=== PATIENT | male | born 1940 | race African-American/Black ===

== ENCOUNTER 2016-03-25 16:25 | Inpatient (IN) | payer MEDICARE, OTHER ==
[~2016-03-25] VITALS: Ht 182.9 cm; Wt 90.1 kg
[2016-03-25] VITALS (21 sets, daily range): BP systolic 68–104; BP diastolic 49–74
--- NOTE | ~2016-03-25 | HEMODYNAMI ---
PATIENT:BERTIN BURLESON MEDICAL RECORD: [id number] : 44 LOCATION:[facility] [id number] ADMISSION DATE: 03/25/16 Generatedon:03/27/201612:42 Patient name: BERTIN BURLESON Patient #: [id number] SSN: : 1940 Date of study: 03/27/2016 Page: Of Hemodynamic Procedure Report Patient Data Patient Demographics Procedure consent was obtained First Name: BERTIN Gender: Male Last Name: SARAH BETH : 1940 Patient #: [id number] Age: 75 year(s) Race: Black Additional ID: [id number] Contact details [address]: [address] [place] [address] State: [place] City: [place] Zip code: [address] Past Medical History Allergies Allergen Reaction Date Comments Reported Sulfa drugs 03/27/2016 Admission Admission Data Admission Date: 03/25/2016 Admission Time: 18:13 Room #: 2308 Height (in.): 72 BSA: 2.1 (m2) Height (cm.): 182.88 BMI: 26.18 (kg/m2) Weight (lbs.): 193 Weight (kg.): 87.54 Procedure Procedure Types Cath Procedure Peripheral Cath Diagnostic Procedure Cath Peripheral Abd/Extremity Extremities Right Lower Ext Arterio Procedure Description Procedure Date Procedure Date: 03/27/2016 Procedure Start Time: 11:05 Procedure Staff Name Function Hola Carbajal MD Performing Physician Karlos Freed RT Scrub Tiny Scherer RN Nurse Aida Fabian RT Monitor Procedure Data Cath Procedure Fluoroscopy Diagnostic fluoroscopy Total fluoroscopy Time: 21 time: 21 min min Diagnostic fluoroscopy Total fluoroscopy dose: dose: 277.74 mGy 277.74 mGy Contrast Material Contrast Material Type Amount (ml) Isovue 300 75 Entry Location Entry Primary Successful Side Size Upsize Upsize Entry Closure Succes sful Closure Location (Fr) 1 (Fr) 2 (Fr) Remarks Device Remarks Femoral Left 5 Fr artery Femoral Right Exoseal artery Diagnostic catheters Device Type Used For End Catheter Placement Madison Sci 5Fr IMT Catheter Procedure Medications Medication Administration Route Dosage Oxygen NC 3 l/min Lidocaine 1% added to field 20 Heparin Flush Bag added to field 3 bags (1000units/500ml NS) Benadryl I.V. 50 mg Versed I.V. 0.5 mg Fentanyl I.V. 25 mcg Heparin Bolus I.V. 4000 units Versed I.V. 0.5 mg Fentanyl I.V. 25 mcg Nitroglycerin IC/IA I.C. 250 mcg Fentanyl I.V. 25 mcg Versed I.V. 0.5 mg Hemodynamics Rest BSA: 2.1 (m2) O2 Consumption: Estimated: 257.1 (ml/min) O2 Consumption indexed: Estimated:122.43 (ml/min/m) Heart Rate: 89 (bpm) Snapshots Pre Cath Intra NCS Post Cath Vital Signs Time Heart Resp SPO2 NIBP (mmHg) Rhythm Pain Sedation Rate (ipm) (%) Status Level (bpm) 10:45:34 79 17 95 93/59(76) NSR 0 (11) 10(A) , No pain 10:49:35 83 18 97 100/69(85) NSR 0 (11) 10(A) , No pain 10:53:41 82 19 96 96/59(77) NSR 0 (11) 10(A) , No pain 10:57:45 76 18 97 96/61(78) NSR 0 (11) 10(A) , No pain 11:01:49 83 17 94 93/63(76) NSR 0 (11) 10(A) , No pain 11:05:51 98 19 96 103/64(85) NSR 0 (11) 10(A) , No pain 11:09:56 81 20 95 102/66(82) NSR 0 (11) 9(A) , No pain 11:14:02 87 19 94 90/61(80) NSR 0 (11) 9(A) , No pain 11:18:04 87 17 96 94/59(78) NSR 0 (11) 9(A) , No pain 11:22:05 83 17 95 96/68(81) NSR 0 (11) 9(A) , No pain 11:26:09 88 17 94 95/62(78) NSR 0 (11) 9(A) , No pain 11:30:13 79 16 97 94/60(80) NSR 0 (11) 9(A) , No pain 11:34:15 83 18 94 102/63(78) NSR 0 (11) 9(A) , No pain 11:38:20 82 17 93 96/60(87) NSR 0 (11) 9(A) , No pain 11:42:24 80 18 95 92/62(74) NSR 0 (11) 9(A) , No pain 11:46:26 84 16 97 89/64(78) NSR 0 (11) 9(A) , No pain 11:50:25 87 17 99 93/66(79) NSR 0 (11) 9(A) , No pain 11:54:29 81 18 97 92/61(78) NSR 0 (11) 9(A) , No pain 11:58:31 80 18 99 92/63(77) NSR 0 (11) 9(A) , No pain 12:02:33 75 16 98 95/65(80) NSR 0 (11) 9(A) , No pain 12:06:36 87 19 100 101/64(85) NSR 0 (11) 9(A) , No pain 12:10:38 94 20 100 108/74(92) NSR 0 (11) 9(A) , No pain 12:14:42 89 20 99 105/72(89) NSR 0 (11) 9(A) , No pain 12:19:39 83 19 100 110/73(88) NSR 0 (11) 9(A) , No pain 12:23:44 89 17 100 107/70(92) NSR 0 (11) 9(A) , No pain 12:27:50 94 17 100 109/70(95) NSR 0 (11) 9(A) , No pain 12:31:56 85 19 100 104/72(99) NSR 0 (11) 9(A) , No pain 12:35:58 89 14 112/76(101) NSR 0 (11) 9(A) , No pain 12:40:04 82 13 107/79(96) NSR 0 (11) 9(A) , No pain Medications Time Medication Route Dose Verified Delivered Reason Notes E ffectiveness by by 10:50:13 Oxygen NC 3 Tiny Tiny used for l/min Niesha Niesha checker loader RN 10:50:22 Lidocaine 1% added 20ml Tiny Tiny used for to vial Niesha Niesha procedure field RN RN 10:50:33 Heparin Flush added 3 Tiny Tiny used for Bag to bags Niesha Niesha procedure (1000units/500ml field RN RN NS) 11:00:41 Benadryl I.V. 50 mg Tiny Tiny Per Niesha Niesha physician RN RN 11:04:49 Versed I.V. 0.5 Tiny Tiny for sedation mg Niesha Niesha RN RN 11:04:57 Fentanyl I.V. 25 Tiny Tiny for sedation mcg Niesha Niesha RN RN 11:19:18 Heparin Bolus I.V. 4000 Tiny Tiny Per units Niesha Niesha physician RN RN 11:31:22 Versed I.V. 0.5 Tiny Tiny for sedation mg Niesha Niesha RN RN 11:31:26 Fentanyl I.V. 25 Tiny Tiny for sedation mcg Niesha Niesha RN RN 11:39:46 Nitroglycerin I.C. 250 Hola Hola for IC/IA mcg Solomon greer MD, MD 12:08:51 Fentanyl I.V. 25 Tiny Tiny for sedation mcg Niesha Niesha RN RN 12:08:57 Versed I.V. 0.5 Tiny Tiny for sedation mg Niesha Niesha RN carbon blocks press operator Log Time Note 9:51:59 Patient Weight : 193 lbs 9:52:11 Patient Height : 72 inches 9:52:17 Use device set IR Diagnostic 9:52:19 Sterile Angiographic Pack opened to sterile field. 9:52:20 Bag Decanter opened to sterile field. 9:53:12 Yasmani GO 260 guide wire opened to sterile field. 9:53:13 Yasmani PINEDA 145cm guide wire opened to sterile field. 9:53:15 St Jose Francisco 5FR Sheath opened to sterile field. 9:53:16 Micropuncture VSI 4FR kit opened to sterile field. 9:54:04 - 10:35:13 A DooBop 5Fr IMT Catheter was advanced over the wire and used for . 10:42:54 Time tracking: Regular hours 10:43:14 Plan of Care:Hemodynamics will remain stable., Cardiac rhythm will remain stable., Comfort level will be maintained., Respiratory function will remain adequate., Patient/ family verbilizes understanding of procedure., Procedure tolerated without complication., Recovers from procedure without complications.. 10:43:21 Patient received from ICU to IR Alert and oriented. Tansferred to table in Supine position. 10:43:23 Correct patient and procedure confirmed by team. 10:43:26 Signed procedure consent form obtained from patient. 10:43:28 - 10:43:34 H&P Date Dictated: 03/27/2016 Within 30 days and on chart.. 10:43:36 Pre-procedure instructions explained to patient. 10:43:36 Pre-op teaching completed and patient verbalized understanding. 10:43:39 Family unavailable. 10:43:46 Patient NPO since Midnight. 10:44:01 Patient allergic to Sulfa drugs 10:44:06 Is the patient allergic to Iodine/contrast media? No. 10:44:14 Is patient on blood thinner?No 10:44:19 Patient diabetic? No. 10:44:27 ECG and BP/O2 sat monitors applied to patient. 10:44:29 Vital chart was started 10:44:30 Baseline sample Acquired. 10:44:52 Full Disclosure recording started 10:47:19 Rhythm: paced 10:47:26 - 10:47:38 ----Pre-sedation anethsthesia assessment.---- 10:47:48 Previous problem with sedation/anesthesia? No ? 10:47:51 Snore? Yes 10:47:54 Sleep apnea? No 10:47:56 Deviated septum? No 10:47:58 Opens mouth fully? Yes 10:48:01 Sticks out tongue? Yes 10:48:06 Airway obstruction? Yes cad 10:48:10 Dentures? No ? 10:48:12 - 10:48:21 Pre procedure: right dorsailis pedis pulse 0-Absent 10:48:25 Pre procedure: left dorsailis pedis pulse Doppler 10:48:30 Pre procedure: left posterior tibial pulse Doppler 10:48:36 Pre procedure: right posterior tibial pulse 0-Absent 10:48:48 IV patent on arrival in right hand with 0.9% NaCl at [facility]. 10:49:02 Left groin area was prepped with chlora-prep and draped in sterile fashion 10:49:06 Alarms reviewed by Aly Cano 10:49:07 Sharps counted by scrub and verified by Karissa 10:49:07 - 10:50:13 Oxygen 3 l/min NC was given by Tiny Scherer RN; used for procedure; 10:50:22 Lidocaine 1% 20ml vial added to field was given by Tiny Scherer RN; used for procedure; 10:50:33 Heparin Flush Bag (1000units/500ml NS) 3 bags added to field was given by Tiny Scherer RN; used for procedure; 11:00:41 Benadryl 50 mg I.V. was given by Tiny Scherer RN; Per physician; 11:02:20 CXI SUPPORT .035 135 CM STR catheter opened to sterile field. 11:02:34 Physician arrived 11:02:48 --------ALL STOP TIME OUT------ 11:02:49 Final Timeout: patient, procedure, and site verified with staff and physician. All members of the team are in agreement. 11:03:19 Sedation plan: IV Moderate Sedation Versed, Fentanyl 11:04:49 Versed 0.5 mg I.V. was given by Tiny Scherer RN; for sedation; 11:04:57 Fentanyl 25 mcg I.V. was given by Tiny Scherer RN; for sedation; 11:05:15 Local anesthetic to left femerol artery with Lidocaine 1% by Hola Carbajal MD.INITIAL ACCESS ONLY 11:05:19 Arterial access obtained using ultrasound guidance. 11:06:13 A 5 Fr sheath was inserted into the Left Femoral artery 11:10:38 [address] ROADRUNNER FIRM 260CM glide wire opened to sterile field. 11:13:32 Terumo 6Fr Bernard Destination Sheath opened to sterile field. 11:17:42 Angiography was performed. 11:19:18 Heparin Bolus 4000 units I.V. was given by Tiny Scherer RN; Per physician; 11:28:02 Terumo ANGLE 260cm glide wire opened to sterile field. 11:31:22 Versed 0.5 mg I.V. was given by Tiny Scherer RN; for sedation; 11:31:26 Fentanyl 25 mcg I.V. was given by Tiny Scherer RN; for sedation; 11:34:14 VIPER .014 335 CM guide wire opened to sterile field. 11:39:25 Turbohawk 1 Large Atherectomy catheter opened to sterile field. 11:39:46 Nitroglycerin IC/IA 250 mcg I.C. was given by Hola Carbajal MD; for vasodilation; 11:51:21 BasixTOUCH Inflation Syringe opened to sterile field. 11:52:35 Inflation number: 1 A Saber 4.0 x 4 x 150 balloon was prepped and advanced across the Undefined1, then inflated to 15 JOSEFINA for 0:20 (min:sec). 12:05:14 Inflation number: 1 A Cordis Powerflex Pro 5.0 X 100 X 135 balloon was prepped and advanced across the Undefined2, then inflated to 15 JOSEFINA for 0:26 (min:sec). 12:08:51 Fentanyl 25 mcg I.V. was given by Tiny Scherer RN; for sedation; 12:08:57 Versed 0.5 mg I.V. was given by Tiny Scherer RN; for sedation; 12:14:36 Inflation number: 2 A IN.PACT Admiral 6 x 150 balloon was prepped and advanced across the Undefined1, then inflated to 12 JOSEFINA for 0:16 (min:sec). 12:16:34 Inflation number: 3 The IN.PACT Admiral 6 x 150 balloon was reinflated across the Undefined1, to 14 JOSEFINA for 0:00 (min:sec). 12:28:35 St Jose Francisco 6Fr sheath opened to sterile field. 12:33:10 Cordis 6Fr Exoseal opened to sterile field. 12:33:56 A sheath was inserted into the Right Femoral artery 12:33:56 Sheath removed intact; hemostasis achieved with Exoseal to the Right Femoral artery. 12:34:00 Procedure and supply charges have been captured, reviewed, submitted an d are correct. 12:34:10 Procedure ended.(Physican Out) 12:34:44 Fluoroscopy time 21.00 minutes. 12:34:51 Fluoroscopy dose: 277.74 mGy 12:34:51 Flurop Dose total: 277.74 12:35:05 Contrast amount:Isovue 300 75ml. 12:35:08 Sharps counted by scrub and verified by R.N. 12:41:48 End room use (Document Last) 12:42:23 Vital chart was stopped Intervention Summary Intervention Notes Time ActionType Lesion and Equipment Action# Pressure Duration Attributes Used 11:52:35 Inflate Undefined1 Saber 4.0 1 15 00:20 balloon x 4 x 150 balloon 12:05:14 Inflate Undefined2 Cordis 1 15 00:26 balloon Powerflex Pro 5.0 X 100 X 135 balloon 12:14:36 Inflate Undefined1 IN.PACT 2 12 00:16 balloon Admiral 6 x 150 balloon 12:16:34 Reinflate Undefined1 IN.PACT 3 14 00:00 balloon Admiral 6 x 150 balloon Device Usage Item Name Manufacture Quantity Catalog Number Hospital Part Current Minimal Lot# / Charge Number Stock Stock Serial# Code Sterile Cardinal 1 [id number] 5 Angiographic Health Pack Bag Decanter Microtek 1 [id number] 91865 498437 5 [employer] [facility] 1 [id number] 345995 402574 5 [id number] 260 guide wire [place] [employer] 1 [id number] 176387 715463 [address] [id number] guide wire [address] [facility] 5FR [facility] Jose Francisco 1 [id number] 380162 713768 5 [id number] Sheath Micropuncture VSI VASCULAR 1 [id number] 072976 393763 5 VSI 4FR kit SOLUTIONS Madison Sci Madison 1 [id number] 909679 828898 86681 5 5Fr IMT Scientific Catheter CXI SUPPORT [employer] 1 K76042 499757 950723 5 1867934 .035 135 CM STR catheter [facility] 1 [id number] 823673 191186 5 [id number] ROADRUNNER FIRM 260CM glide wire Terumo 6Fr Terumo 1 RSR01 401879 23404 960801 5 Bernard Destination Sheath Terumo ANGLE Terumo 1 [id number] 795327 508312 415043 5 260cm glide wire VIPER .014 Cardiovascular 1 [id number] 214288 226904 5 335 CM guide systems wire Turbohawk 1 Ev3 1 H1-M 075617 346291 146769 5 Large Atherectomy catheter [facility] 1 MN8000 549031 839693 013987 5 Inflation Syringe Saber 4.0 x 4 Cardinal 1 [id number] 272031 016647 5 x 150 balloon Health Cordis Cardinal 1 [id number] 176489 292037 629161 5 Powerflex Pro Health 5.0 X 100 X 135 balloon IN.PACT Medtronic 1 [id number] 187605 0441090 059383 5 [id number] Admiral [address] Jose Francisco [address] St Jose Francisco 1 [id number] 597987 916404 5 [id number] sheath Cordis 6Fr Cardinal 1 EX600 526394 965485 150130 10 [id number] [facility] L'[employer]ine Ã Design Signature Audit [place] Stage Time Signature Unsigned Intra-Procedure 03/27/2016 Aida Fabian 12:42:19 PM RT(R) Signatures Monitor : Aida Fabian RT Signature : Date : Time : [id number] [place] [address]
[~2016-03-25 16:25] MED LIST: COREG25 MG PO; COUMADIN10 MG PO; COUMADIN5 MG PO; COZAAR100 MG PO; FLOMAX0.4 MG PO; GLUCOTROL 5 MG T5 MG PO; LANTUS INSULIN10 ML SC; LASIX40 MG PO; LIPITOR10 MG PO; NORCO 7.5/325 T1 TA1 PO; PHOSLO667 MG PO; PLAVIX75 MG PO; PROAIR HFA8.5 GM INH; ZYLOPRIM100 MG PO
--- NOTE | 2016-03-25 18:34 | NUR ---
DR. GANN NOTIFIED OF PT ARRIVAL. STATES HE WILL "COME SEE HIM". DIET ORDERED.
--- NOTE | 2016-03-25 18:39 | NUR ---
1830 RECEIVED PT FROM EMS FROM [place], AWAKE ALERT ORIENTED X 4 BP LOW ON LEVOPHED GTT TRANSFERRED TO ICU BED AND HOOKED UP TO MONOITORS. ABLE TO ANSWER ALL QUESTIONS. C/O NAUSEA BARF BAG GIVEN. ON RROM AIR O2 SATS 94%. DR GANN PAGED AND ORDERS GIVEN.
[2016-03-25] MEDS ORDERED: LASIX80 MG PO (19:19)
[2016-03-25] MEDS ORDERED: NORCO 7.5/325 T1 TA1 PO (19:21)
[2016-03-25] MEDS ORDERED: NEPHRO-VITE RX1 TAB PO (19:24)
[2016-03-25] MEDS ORDERED: LINEZOLID600 MG PO (19:24)
--- NOTE | 2016-03-25 19:30 | NUR ---
REPORT REC'D AND CARE ASSUMED, REC'D PT AWAKE AND ALERT ON ROOM AIR, RIGHT FOREARM PIV WITH LEVOPHED @ 12MCG/MIN, CM- SR WITH PAC'S AND PVC'S, PT HAS P/M DEFIBRILLATOR, DENIES PAIN AT THIS TIME, WHEN ASKED IF NAUSEATED STATES " A LITTLE", ABD SOFT BS ACTIVE X 4, LEFT UPPER ARM FISTULA, FAINT THRILL NOTED, BP 68/49, LEVOPHED INCREASED TO 14MCG/MIN, RIGHT FOOT DRSG WITH SANGUINOUS DRAINAGE, PT REPORTS AMPUTATION 11 MONTHS AGO, KERLIX LOOSE ON FOOT, PT DENIES NEEDS, SR UP X 2, VISIBLE TO NURSES STATION.
--- NOTE | 2016-03-25 20:15 | NUR ---
DR. GANN ON UNIT, NEW ORDERS REC'D.
--- NOTE | 2016-03-25 20:30 | NUR ---
DR. GANN ON UNIT, NEW ORDERS REC'D.
--- NOTE | 2016-03-25 20:30 | NUR ---
BP IMPROVED WILL CONT TO MONITOR, PT COMPLAINS OF BEING COLD, THERMOSTAT ADJUSTED IN ROOM.
--- NOTE | 2016-03-25 20:40 | NUR ---
NS @ 30CC/HR BEGUN TO RIGHT FOREARM, PT RESTING ON RIGHT SIDE, SR UP X 2, VISIBLE TO NURSES STATION
--- NOTE | 2016-03-25 23:00 | NUR ---
PT RESTING IN BED EYES CLOSED, BP IMPROVED, ATTEMPTING TO WEAN LEVOPHED TOLERATED, PT DENIES FURTHER NEEDS, SR UP X 2, BED IN LOWEST POSITION.
[2016-03-26] VITALS (95 sets, daily range): BP systolic 71–101; BP diastolic 46–82; Ht 182.9 cm; Wt 90.1 kg
--- NOTE | 2016-03-26 00:30 | NUR ---
PT NEEDING TO GO TO BATHROOM COMPLAINS OF ABD CRAMPING, PLACED ON BEDPAN, CALL LIGHT IN REACH.
--- NOTE | 2016-03-26 00:55 | NUR ---
PT REMOVED SELF FROM BEDPAN, NO RESULTS NOTED, BP 85/64, LEVOPHED CONTINUES, CALL LIGHT IN REACH.
--- NOTE | 2016-03-26 02:30 | NUR ---
RESTING ON SIDE EYES CLOSED, RESP EVEN AND UNLABORED, VSS, WILL CONT TO MONITOR FOR CHANGES
--- NOTE | 2016-03-26 04:15 | NUR ---
PT ASSISTED TO REPOSITION UP IN BED, VSS, ATTEMPTING TO WEAN LEVOPHED TOLERATED.
--- NOTE | 2016-03-26 04:50 | NUR ---
LAB AT FOR AM LAB DRAW
--- NOTE | 2016-03-26 06:00 | NUR ---
NO VISITORS IN AT THIS TIME.
[2016-03-26 06:19] LABS: BASOPHILS 0 % (0.0-2.0); EOSINOPHILS 0.4 % (0-7); HEMATOCRIT 38.2 % (42.0-54.0); HEMOGLOBIN 12.9 g/dL (13.5-17.5); IMMATURE GRANULOCYTES 0.3 % (0-5); MCH 29.7 pg (26.0-34.0); MCHC 33.8 g/dL (31.0-37.0); MEAN PLATELET VOLUME 11.4 fL (7.4-10.4); MONOCYTES 5.8 % (2-11); NEUTROPHILS 86.5 % (40-80); RBC 4.34 10x6/uL (4.20-6.10); RDW 20.1 % (11.5-14.5); WBC 9.3 10x3/uL (4.8-10.8)
[2016-03-26 06:33] LABS: INR 1.73 (0.85-1.17); PROTIME 20.2 SECONDS (11.6-15.0)
[2016-03-26 06:35] LABS: ALBUMIN 2.6 g/dL (3.4-5.0); ANION GAP 22.3 mmol/L (8-16); BILIRUBIN - DIRECT 0.31 mg/dL (0.00-0.30); BILIRUBIN - INDIRECT 0.49 mg/dL (0.00-1.00); BILIRUBIN - TOTAL 0.8 mg/dL (0.2-1.3); CALCIUM 7.3 mg/dL (8.5-10.1); CARBON DIOXIDE 23.6 mmol/L (21.0-32.0); CREATININE - SERUM 9.8 mg/dL (0.6-1.3); PHOSPHOROUS 7.9 mg/dL (2.5-4.9); POTASSIUM - SERUM 4.9 mmol/L (3.5-5.1); PROTEIN - SERUM 5.7 g/dL (6.4-8.2); VANCOMYCIN - RANDOM 11.4 ug/mL (10.0-20.0)
[2016-03-26 07:23] LABS: PLATELET COUNT 67 10x3/uL (130-400)
[2016-03-26 07:24] LABS: PLATELET ESTIMATE DECREASED
--- NOTE | 2016-03-26 07:30 | NUR ---
0730- REC'D PT AAO X4. PT RIGHT LEG DRSG REMOVED. WOUND CARE NURSE CONSULT IN COMPUTER. PT C/O INDIGESTION. BURPS FREQUENTLY. LEVOPHED BEING TITRATED FOR DESIRED B/P EFFECT. 0850- DR GANN AT BEDSIDE. NEW ORDERS REC'D. WILL TITRATE LEVOPHED OFF AND START DOBUTAMINE GTT. 1000- PT GONE FOR CTA. 1150- PT RESTING IN BED, EYES CLOSED. CONTINUE TO TITRATE LEVOPHED GTT OFF AND INFUSE DOBUTAMINE TO DESIRED LEVEL.
--- NOTE | 2016-03-26 12:22 | NUR ---
WOUND CARE CONSULT: PT HAS WOUND ON RIGHT FOOT WHERE GREAT TOE #2 AND #3 TOES WERE AMPUTATED. THE BONE IS VISABLE AT GREAT TOE AND #2 AND #3 SITE IS CLOSING. PT FAMILY MEMBER STATES AMPUTATION WAS DONE ABOUT 11 MONTHS AGO. HE ALSO HAS A WOUND ON HIS RIGHT CALF MEASURING 5CM X 6CM X ESCHAR. WOUND IS DRY. HE IS BEING SEEN AT WOUND CLINIC IN [place] ONCE/WEEK. FAMILY MEMBER STATES THEY HAVE BEEN USING SANTYL ON THE LEG WOUND (CHANGING DAILY) AND UNSURE ABOUT DRESSING TO AMPUTATION SITE OTHER THAN IT WAS PACKED (APPEARED TO BE 1/4" PACKING STRIP). CLEANSED AND COVERED WOUND TO AMP SITE WITH 4X4 SATURATED WITH NORMAL SALINE, LOOSELY PACKED AND COVERED WITH DRY 4X4S, SECURED WITH KERLIX. DR. YOU HAS BEEN CONSULTED. WOUND CARE WILL CONTINUE TO MONITOR.
--- NOTE | 2016-03-26 13:45 | NUR ---
1345- PT RESTING IN BED, DENIES NEEDS AT THIS TIME. 1545- REASSESSMENT COMPLETE. NO CHANGE IN PREVIOUS ASSESSMENT. 1700- PT NAUSEATED. ZOFRAN GIVEN [address] MG IV. SPOKE WITH DR SHEARER REGARDING PT NAUSEA. ORDERS REC'D.
[2016-03-26 16:27] LABS: HEMATOCRIT 40.4 % (42.0-54.0); HEMOGLOBIN 13.3 g/dL (13.5-17.5); MCHC 32.9 g/dL (31.0-37.0); MCV 88.2 fL (80.0-100.0); MEAN PLATELET VOLUME 11.5 fL (7.4-10.4); RBC 4.58 10x6/uL (4.20-6.10); RDW 20.7 % (11.5-14.5); WBC 9.4 10x3/uL (4.8-10.8)
[2016-03-26 16:38] LABS: APTT 34.7 SECONDS (22.8-39.4); INR 1.72 (0.85-1.17); PROTIME 20.1 SECONDS (11.6-15.0)
--- NOTE | 2016-03-26 19:24 | NUR ---
REPORT RECIEVED. ASSESSMENT COMPELTE PER FLOW SHEET. REFER FOR FINDINGS. PT ASSISTEDO NTO BEDPAN DENIES FURTHER NEEDS.
--- NOTE | 2016-03-26 20:11 | NUR ---
PARTIAL LINEN CHANGE LARGE BM NOTED. NEEDS MET. WILL CONTINUE TO MONITOR.
--- NOTE | 2016-03-26 21:21 | NUR ---
FAMILY AT BEDSIDE. GIVEN UPDATE. VSS NO NEW CHANGES WILL CONTNIUE T MONITOR.
--- NOTE | 2016-03-26 23:06 | NUR ---
REASSESSMENT COMPLETE PER FLOW SHEET. VSS NO NEW CHANGES. PT SLEEPING COMFORTABLY. WILL CONTINUE TO MONITOR.
[2016-03-27] VITALS (57 sets, daily range): BP systolic 81–108; BP diastolic 49–74
--- NOTE | 2016-03-27 03:08 | NUR ---
REASSESSMENT COMPELTE PER FLOW SHEET. VSS. NO NEW CHANGES WILL CONTINUE TO MONITOR.
[2016-03-27 04:51] LABS: BASOPHILS 0 % (0.0-2.0); EOSINOPHILS 0.6 % (0-7); HEMOGLOBIN 12.7 g/dL (13.5-17.5); IMMATURE GRANULOCYTES 0.4 % (0-5); MCH 29.1 pg (26.0-34.0); MCHC 33.4 g/dL (31.0-37.0); MCV 87.2 fL (80.0-100.0); MEAN PLATELET VOLUME 11.5 fL (7.4-10.4); MONOCYTES 6.5 % (2-11); NEUTROPHILS 86.5 % (40-80); PLATELET COUNT 59 10x3/uL (130-400); RBC 4.36 10x6/uL (4.20-6.10); RDW 20.5 % (11.5-14.5); WBC 8.1 10x3/uL (4.8-10.8)
[2016-03-27 05:05] LABS: ANION GAP 19.7 mmol/L (8-16); CALCIUM 7.1 mg/dL (8.5-10.1); CARBON DIOXIDE 22.2 mmol/L (21.0-32.0); CREATININE - SERUM 10.3 mg/dL (0.6-1.3); PHOSPHOROUS 8.8 mg/dL (2.5-4.9); POTASSIUM - SERUM 4.9 mmol/L (3.5-5.1)
--- NOTE | 2016-03-27 07:00 | NUR ---
REPORT REC'D, ASSESSMENT COMPLETE PER FLOWSHEET, VSS, AWAKE AND ORIENTED
[2016-03-27 08:01] LABS: INR 1.61 (0.85-1.17); PROTIME 19.1 SECONDS (11.6-15.0)
--- NOTE | 2016-03-27 08:45 | NUR ---
AM MEDS INTIATED
--- NOTE | 2016-03-27 10:30 | NUR ---
TO IR FOR ARTERIOGRAM, AWAKE AND OREINTED, VSS
--- NOTE | 2016-03-27 13:16 | NUR ---
Is the patient Alert and Oriented? No 0 * How many steps to enter\exit or inside your home? 6 0 * PCP DR. EUGENE CHU IN [place] * [facility]acy [facility] IN [place] * Preadmission Environment Home with Family 0 * ADLs Total Dependent 0 * Equipment Cane Walker 0 * List name and contact numbers for known caregivers / representatives who currently or will assist patient after discharge: SPOUSE: IVETH (C) [phone] (H) [phone] 0 * Community resources currently utilized None 0 * Please name any agencies selected above. PREVIOUSLY HAD HOME HEALTH FROM AGENCY IN [place] * Additional services required to return to the preadmission environment? Yes 0 * Can the patient safely return to the preadmission environment? No 0 * Has this patient been hospitalized within the prior 30 days at any hospital? No 0 SPOKE WITH PATIENT'S , IVETH. HE LIVES AT HOME WITH HER. HE IS PRETTY DEPENDENT IN HIS CARE. PATIENT'S PCP IS DR. EUGENE CHU IN [place]. HE GETS HIS MEDS FROM [facility] IN [place]. PATIENT HAS A WALKER AND CANE AT HOME. STATES PATIENT HAD HOME HEALTH IN THE PAST FROM AN AGENCY IN [place]. SHE DOES NOT RECALL THE NAME OF THE AGENCY. PATIENT DOES DIALYSIS AT DIALYSIS UNIT IN [place] ON . HIS , IVETH, DRIVES HIM TO AND FROM [facility]. HIS PLANS TO DRIVE HIM HOME AT DISCHARGE. DISCHARGE NEEDS UNDETERMINED AT THIS TIME.
--- NOTE | 2016-03-27 13:30 | NUR ---
BACK FROM IR, DROWSEY, FOLLOWS COMMANDS, HEPARIN GTT OFF, SPOKE WITH ELEUTERIO FOSTER STATES SHE WILL VERIFY WITH DR JIMENEZ IF NEEDS TO STAY OFF, LEFT GROIN DRESSING CDI, NO HEMATOMA OR ERYTHEMNA NOTED, PULSE BY DOPPLER TO LEFT, ABSENT TO RIGHT, PAIN WITH TOUCH, ASSESSMENT COMPLETE, CALL LIGHT IN REACH NO NEEDS AT THIS TIME. AND SON TO BEDSIDE,
--- NOTE | 2016-03-27 15:00 | NUR ---
NO ACUTE CHANGE FROM PREVIOUS ASSESSMENT, VSS, RESTING WITH LEG STRAIGHT, L GROIN DRESSING CDI
--- NOTE | 2016-03-27 15:50 | NUR ---
HD BEGAN WITHOUT DIFFICULTY, VSS
--- NOTE | 2016-03-27 17:35 | NUR ---
CONTINUES ON VENT WITH 50% FIO2, AROUSES TO TACTILE STIMULI, VSS, HD IN PROGRESS
--- NOTE | 2016-03-27 19:40 | NUR ---
REPORT RECIEVED. ASSESSMENT COMPELTEP PER FLOW SHEET. VSS. DIALYSIS AT BEDSIDE. WILL CONTINUE TO MONITOR
--- NOTE | 2016-03-27 20:58 | NUR ---
COMPLETE BB LINEN CHANGE ADM. R FOREARM PIV LEAKING, REMOVED CATH INTACT RESITED TO UPPER FOREARM 20 G ON 1 ATTEMPT WITHOUT DIFFICULTY. VSS WILL CONTINUE TO MONITOR
--- NOTE | 2016-03-27 22:53 | CN ---
PATIENT NAME:BERTIN BURLESON MEDICAL RECORD: [id number] : 44 LOCATION:[facility].2308 ADMIT DATE: 03/25/16 ACCOUNT: [id number] CONSULTING PHYSICIAN: JAYESH VEGA MD REFERRING PHYSICIAN: REBECCA GANN MD DATE OF CONSULTATION: 03/26/2016 Surgical Consultation CONSULTING PHYSICIAN: Jayesh Vega MD REASON FOR CONSULTATION: Right lower extremity ischemia. HISTORY OF PRESENT ILLNESS: This is a 75-year-old gentleman with end-stage renal disease, who was admitted from [place] with hypotension. He is a very poor historian and all history was obtained via discussion with the and the chart review. He is in the ICU on a dobutamine and norepinephrine drip. He complains of some pain in the right foot. He has a history of previous amputation of 2 toes a couple months ago, it is not healed. He also has noted venous stasis ulcers and chronic venous stasis changes on that leg. There is a question whether this is a sepsis as the patient's right leg is the source of his sepsis. PAST MEDICAL HISTORY: Stroke, CVA, diabetes, hypertension, heart disease, severe peripheral vascular disease and COPD. SURGICAL HISTORY: Right toe amputation, fistula placement, defibrillator, coronary stents. ALLERGIES: SULFA. HOME MEDICATIONS: Coumadin, ____, [place], Plavix, ProAir, Glucotrol, Lantus, Lasix, Zyvox, Cozaar, Coreg, Flomax. SOCIAL HISTORY: Previous smoker. Denies alcohol. FAMILY HISTORY: Unobtainable secondary to patient factors. REVIEW OF SYSTEMS: A 12-point review of systems was unobtainable secondary to the patient's mental status. PHYSICAL EXAMINATION: VITAL SIGNS: Temperature 97, pulse 76, blood pressure 83/60, satting 96% on room air. GENERAL: Debilitated elderly male, who is awake and alert, poor memory. EYES: Extraocular muscles are intact. Sclerae are anicteric. EARS, NOSE AND THROAT: Mucous membranes are dry. Poor dentition. CARDIOVASCULAR: Normal sinus rhythm. Palpable thrill on the left arm fistula. He has none palpable pulses in the right lower extremity to popliteal or distal. He does have a faint femoral pulse. ABDOMEN: Soft, nontender, and nondistended. RESPIRATORY: No acute distress. Normal breath sounds. NEUROLOGIC: Speech is clear. No localizing sounds. EXTREMITIES: He has tender right foot with chronic open wounds of the previous amputation sites. The whole right lower leg has darkened from chronic venous CONSULT REPORT [id number] SARAH BETHBERTIN stasis and chronic ischemia. CT abdominal aorta with femoral runoff images personally reviewed with radiologist, Dr. Carbajal. Patient has extensive proximal disease. He has an occluded 2-vessel flow at lower extremity with some runoff noted in the posterior tibial artery as well as the significant visceral artery disease. LABORATORY DATA: Reviewed. Please see electronic medical record for full list of labs. IMPRESSION: A 75-year-old male with [id number] peripheral vascular disease, likely open wound in his right leg, sepsis. I discussed with the family the severity of the situation, I have reviewed the angiogram. At this time, I recommend below-knee amputation, which the patient has refused. I have placed a consult interventional radiology for angiogram with angioplasty and possible stent to increase blood flow for wound healing. I will start the patient on a heparin drip. Follow the heparin drip protocol for PTT. I believe this wound will unlikely be healed with endovascular intervention. I will revisit the family and the discussion about BKA. TRANSINT:[id number] Voice Confirmation ID: [id number] DOCUMENT ID: [id number] JAYESH VEGA MD at 2253 CC: [id number] DICTATION DATE: 03/27/16 0954 TEACHER CITIZENSHIP: 03/27/16 1806 ADM IN [place] [id number] [place] [address]
--- NOTE | 2016-03-27 23:35 | NUR ---
REASSESSMENT COMPLETEP ER FLOW SHEET. VSS. PTT READ BACK GREATER THAN 200 WILL HOLD HEP. FOR ONE HR AND DECREASE BY 300 WILL REASSESS
[2016-03-28] VITALS (74 sets, daily range): BP systolic 71–124; BP diastolic 33–87
--- NOTE | 2016-03-28 01:16 | NUR ---
COMPLETE BB LINEN CHANGE ADM. PT ASSISTED ONTO BEDPAN LARGE BM NOTED
--- NOTE | 2016-03-28 03:21 | NUR ---
REASSESSMENT COMPLETE PER FLOW SHEET. VSS. NO NEW CHANGES AT THIS TIME WILL CONTINUE TO MONITOR
[2016-03-28 04:42] LABS: BASOPHILS 0 % (0.0-2.0); EOSINOPHILS 0.2 % (0-7); IMMATURE GRANULOCYTES 0.4 % (0-5); MCH 28.7 pg (26.0-34.0); MEAN PLATELET VOLUME 11.8 fL (7.4-10.4); MONOCYTES 7.9 % (2-11); NEUTROPHILS 85.5 % (40-80); RDW 20.6 % (11.5-14.5)
[2016-03-28 04:48] LABS: HEMATOCRIT 26.6 % (42.0-54.0); HEMOGLOBIN 8.5 g/dL (13.5-17.5); MCV 89.9 fL (80.0-100.0); PLATELET COUNT 35 10x3/uL (130-400); RBC 2.96 10x6/uL (4.20-6.10); WBC 5.5 10x3/uL (4.8-10.8)
[2016-03-28 05:10] LABS: CARBON DIOXIDE 22.5 mmol/L (21.0-32.0); PHOSPHOROUS 6.9 mg/dL (2.5-4.9)
[2016-03-28 05:22] LABS: ALBUMIN 1.9 g/dL (3.4-5.0); ANION GAP 18.2 mmol/L (8-16); CALCIUM 6.3 mg/dL (8.5-10.1); CREATININE - SERUM 7.1 mg/dL (0.6-1.3); POTASSIUM - SERUM 3.7 mmol/L (3.5-5.1)
--- NOTE | 2016-03-28 07:00 | NUR ---
REC'D REPORT AND RESUMED CARE, SLEEPING AROUSABLE TO VERBAL STIMULI, CONFUSED ABOUT TIME AND PLACE, C/O PAIN IN FOOT, DOES NOT TELL WHICH ONE, DRESSING ON RIGT FOOT CDI, O2 VIA NC AT 2L, SAT 97% OTHER VSS, LEFT UPPER ARM FISTULA WITH CDI DRESSING, USES URINAL, RIGHT HAND PIV DRESSING CHANGE COMPLETED, REPOSITIONED UP AND TO BACK, CALL LIGHT IN REACH, VOICES NO NEEDS AT THIS TIME
--- NOTE | 2016-03-28 08:21 | NUR ---
BATH AND LINEN CHANGE COMPLETED, AM MEDS INITIATED, BREAKFAST TRAY TO BEDSIDE, ASSIST WITH SET UP, INDEPENDENT WITH EATING
--- NOTE | 2016-03-28 09:00 | NUR ---
AM MEDS GIVEN WITHOUT DIFFICULTY, NO VISITORS AT THIS TIME
--- NOTE | 2016-03-28 11:00 | NUR ---
NO ACUTE CHANGE FROM PREVIOUS ASSESSMENT. VSS, CONTINUES ON DOBUTAMINE AND HEPARIN GTT, VSS, DENIES PAIN, SELF REPOSITIONS, VOICES NO NEEDS AT THIS TIME
--- NOTE | 2016-03-28 12:00 | NUR ---
AT BEDSIDE, STATUS UPDATED, VOICES NO NEEDS AT THIS TIME
--- NOTE | 2016-03-28 13:09 | NUR ---
Nutrition follow-up: Diet: Renal Labs reviewed +BM Wt: 193# Pt may be scheduled for additional surgery Will provide food choices and honor food preferences within diet restrictions. RDN following.
--- NOTE | 2016-03-28 15:00 | NUR ---
DR SHEARER HERE FOR EVAL, SPOKE WITH AT BEDSIDE, DNR STATUS OBTAINED, NO DECISION BY FAMILY RE: SURGERY AT THIS TIME, NO ACUTE CHANGE FROM PREVIOUS ASSESSMENT
--- NOTE | 2016-03-28 16:00 | NUR ---
HEPARIN GTT RESTARTED PER PROTOCAL AT 400 UNITS/HR
--- NOTE | 2016-03-28 18:00 | NUR ---
WIFT AT BEDSIDE, STATUS UPDATED, VOICES NO NEEDS AT THIS TIME
--- NOTE | 2016-03-28 18:15 | NUR ---
DINNER TRAY TO BEDSIDE, INDEPENDENT WITH SET UP AND EATING
--- NOTE | 2016-03-28 19:00 | NUR ---
RECEIVED PATIENT IN BED RESTING WITH EYES OPEN WATCHING TV, ASSESSMENT COMPLETE PER FLOWSHEET. PATIENT IS AO X3, DISORIENTED TO TIME BUT ANSWERS APPROPRIATELY TO QESTIONS. EYES PERRLA @ 3MM WITH BRISK RESPONSE, SCLERA IS WHITE. NASAL/ORAL MUCOSA IS MOIST AND INTACT, PATIENT IS ON 2L O2 VIA NC. S1/S2 NOTED WITH PATIENT NSR ON TELEMETRY, PACEMAKER/DEFIBRILLATOR NOTED. LUNG SOUNDS ARE CLEAR BILATERAL UPPER WITH SLIGHTLY DIMINISHED LOWER LOBES. ABDOMEN IS DISTENDED AND SOFT, BOWEL SOUNDS ACTIVE X4. PATIENT AMBULATES TO BEDSIDE COMMODE TO VOID, NO PAIN OR IRRITATION NOTED WHEN VOIDING. UPPER EXTREMITY PULSES PALPABLE, L PEDAL IS WEAK AND R PEDAL IS UNABLE TO PALPATE. SLIGHT WEAKNESS NOTED IN ALL EXTREMITIES, HAND SUTURE WINDER/PEDAL STRENGTH IS EQUAL AND BILATERAL. PIV NOTED 20G R HAND/R WRIST, PATENT WITH FLUIDS INFUSING. PATIENT REPOSITIONED FOR COMFORT, DENIES PAIN OR OTHER NEEDS AT THIS TIME. ALL VSS AND WILL CONTINUE TO MONITOR.
--- NOTE | 2016-03-28 20:00 | NUR ---
LAB COLLECTED PTT SAMPLE FOR TESTING, AWAITING RESULTS TO ADJUST HEPARIN PER PROTOCOL.
--- NOTE | 2016-03-28 20:36 | NUR ---
SAMPLE COLLECTED WAS UNUSABLE, COLLECTED FROM VEIN WITH HEPARIN CURRENTLY INFUSING. SAMPLE DISCARDED AND LAB CONTACTED FOR RECOLLECTION.
--- NOTE | 2016-03-28 23:00 | NUR ---
REASSESSMENT COMPLETE PER FLOWSHEET, PATIENT RESTING IN BED WITH EYES CLOSED. BREATHING IS SHALLOW AND EVEN, LUNG SOUNDS ARE CLEAR UPPER WITH DIMINISHED LOWER. PATIENT IS NSR ON TELEMETRY WITH REGULAR PACED BEATS. PATIENT DENIES PAIN OR OTHER NEEDS AT THIS TIME, ALL VSS AND WILL CONTINUE TO MONITOR.
[2016-03-29] VITALS (28 sets, daily range): BP systolic 76–118; BP diastolic 63–85
[2016-03-29 00:16] LABS: MCHC 32.6 g/dL (31.0-37.0); MCV 88.9 fL (80.0-100.0)
[2016-03-29 00:18] LABS: HEMATOCRIT 35.9 % (42.0-54.0); HEMOGLOBIN 11.7 g/dL (13.5-17.5); RBC 4.04 10x6/uL (4.20-6.10); WBC 8.2 10x3/uL (4.8-10.8)
[2016-03-29 00:19] LABS: PLATELET COUNT 39 10x3/uL (130-400)
--- NOTE | 2016-03-29 01:30 | NUR ---
PTT RESULT 139.7, PER PROTOCOL DRIP HELD FOR 30MIN AND DECREASED BY 200 UNITS/HR UPON RESTART. WILL RECHECK WITH AM LABS.
--- NOTE | 2016-03-29 03:00 | NUR ---
REASSESSMENT COMPLETE PER FLOWSHEET, PATIENT RESTING IN BED WITH EYES CLOSED. BREATHING IS SLIGHTLY SHALLOW ON 2L VIA NC, LUNG SOUNDS ARE CLEAR BILATERAL UPPER WITH DIMINISHED LOWER. DRESSING CDI ON R FOOT, NO DRAINAGE OR BLEEDING NOTED. PATIENT DENIES PAIN OR OTHER NEEDS AT THIS TIME, ALL VSS AND WILL CONTINUE TO MONITOR.
[2016-03-29 06:12] LABS: BASOPHILS 0 % (0.0-2.0); EOSINOPHILS 0.3 % (0-7); IMMATURE GRANULOCYTES 0.3 % (0-5); LYMPHOCYTES 6.2 % (15-50); MCH 28.9 pg (26.0-34.0); MCV 87.8 fL (80.0-100.0); MONOCYTES 11.3 % (2-11); NEUTROPHILS 81.9 % (40-80); RDW 21.1 % (11.5-14.5); WBC 6.3 10x3/uL (4.8-10.8)
[2016-03-29 06:29] LABS: ANION GAP 19.2 mmol/L (8-16); CARBON DIOXIDE 18.4 mmol/L (21.0-32.0); CREATININE - SERUM 6.8 mg/dL (0.6-1.3); PHOSPHOROUS 6.3 mg/dL (2.5-4.9); POTASSIUM - SERUM 3.6 mmol/L (3.5-5.1)
[2016-03-29 06:32] LABS: RBC 3.11 10x6/uL (4.20-6.10)
[2016-03-29 06:33] LABS: HEMATOCRIT 27.3 % (42.0-54.0); PLATELET COUNT 40 10x3/uL (130-400)
[2016-03-29 06:35] LABS: CALCIUM 5.5 mg/dL (8.5-10.1)
--- NOTE | 2016-03-29 07:00 | NUR ---
REC'D CARE OF PT. A&O X3.
--- NOTE | 2016-03-29 09:00 | NUR ---
AT BEDSIDE. UPDATED.
--- NOTE | 2016-03-29 12:00 | NUR ---
REFUSED LUNCH TRAY
--- NOTE | 2016-03-29 12:33 | NUR ---
Mr. Love had bedside hemodialysis today via his left upper arm av fistula from 08 until 1159. Average blood flow was 350-400 mls/minute. Net fluid removed was 1000 mls as ordered. Post vital signs were: B/P: 112/74, HR: 103, Temp: 97.8, Resps:18.
--- NOTE | 2016-03-29 12:34 | NUR ---
HD HAS ENDED, TOLERATED WELL. LINEN CHANGED. REPOSITIONED IN BED.DR. SHEARER AT BEDSIDE. UPDATING .
--- NOTE | 2016-03-29 14:57 | NUR ---
UP TO BEDSIDE COMMODE. REMINDED HIM TO CALL ME WHEN HE GOT READY TO GO BACK TO BED.
--- NOTE | 2016-03-29 16:23 | NUR ---
DRSG CHANGED AT RIGHT LOWER EXT.
--- NOTE | 2016-03-29 16:24 | NUR ---
ALL MEDICATIONS WITH THE EXCEPTION OF HEPARIN GTT BEING INFUSED VIA MANIFOLD AT RIGHT FOREARM PIV.
--- NOTE | 2016-03-29 16:41 | NUR ---
REFUSED DINNER TRAY. I SET IT ON HIS TABLE.
--- NOTE | 2016-03-29 18:30 | NUR ---
HEATED UP DINNER TRAY PER HIS REQUEST. FAMILY AT BEDSIDE. UPDATED. VSS.
[2016-03-29 18:43] LABS: D-DIMER-QUANTITATIVE 2.84 ug/mLFEU (0.20-0.54)
[2016-03-29 18:44] LABS: APTT 39.6 SECONDS (22.8-39.4)
--- NOTE | 2016-03-29 19:00 | NUR ---
REPORT REC'D AND ASSUMED PATIENT CARE. ASSESSMENT COMPLETED PER FLOW SHEETS. PT A/OX3, DENIES ANY DISCOMFORT AT THIS TIME. PACED ON CM. LUNG SOUNDS CLEAR TO ULB, DIMINISHED TO LLB, UNLABORED. O2SAT 95% ON 2L VIA NC. LEFT UA FISTULA INTACT, CLEAN AND DRY. RT FA PIV I,C,D INFUSING IV FLUIDS PER ORDER VIA PUMP. RT FOOT DRESSING C,D,I. RT PP ABSENT. LEFT PP WITH DOPPLER. CALL LIGHT IN REACH. HOB UP. SIDE RAILS UP. BED BED IN LOW POSITION AND LOCKED. CALL LIGHT IN REACH. CPOC.
--- NOTE | 2016-03-29 21:00 | NUR ---
NO VISITORS AT THIS TIME. SCHEDULED MEDS GIVEN PER ORDER. VSS. CONT DOPAMINE GTT PER SBP > 90. CPOC.
--- NOTE | 2016-03-29 23:00 | NUR ---
REASSESSMENT COMPLETED PER FLOW SHEETS. NO ACUTE SIGNS OF DISTRESS NOTED. VSS. PACED ON MONITOR. NO NEEDS VOICES AT THIS TIME. CALL LIGHT IN REACH. CPOC.
[2016-03-30] VITALS (18 sets, daily range): BP systolic 76–118; BP diastolic 57–81
--- NOTE | 2016-03-30 01:00 | NUR ---
PT RESTING QUIETLY WITHOUT DISTRESS. NO NEEDS VOICES. VSS. CPOC
--- NOTE | 2016-03-30 03:00 | NUR ---
REASSESSMENT COMPLETED PER FLOW SHEETS. NO SIGNS OF DISTRESS NOTED. VSS. CONT DOBUTAMINE DRIPS PER ORDER . CALL LIGHT IN REACH. CPOC.
[2016-03-30 03:26] LABS: BASOPHILS 0 % (0.0-2.0); EOSINOPHILS 0.1 % (0-7); HEMATOCRIT 32.2 % (42.0-54.0); HEMOGLOBIN 10.4 g/dL (13.5-17.5); IMMATURE GRANULOCYTES 0.3 % (0-5); LYMPHOCYTES 4.2 % (15-50); MCH 28.3 pg (26.0-34.0); MCHC 32.3 g/dL (31.0-37.0); MCV 87.7 fL (80.0-100.0); MONOCYTES 10.1 % (2-11); NEUTROPHILS 85.3 % (40-80); RBC 3.67 10x6/uL (4.20-6.10)
[2016-03-30 03:31] LABS: WBC 7.9 10x3/uL (4.8-10.8)
[2016-03-30 03:32] LABS: PLATELET COUNT 43 10x3/uL (130-400)
[2016-03-30 03:44] LABS: ANION GAP 13.3 mmol/L (8-16); CALCIUM 7.1 mg/dL (8.5-10.1); CARBON DIOXIDE 25.7 mmol/L (21.0-32.0); CREATININE - SERUM 6.5 mg/dL (0.6-1.3); PHOSPHOROUS 5.5 mg/dL (2.5-4.9); VANCOMYCIN - RANDOM 25.8 ug/mL (10.0-20.0)
--- NOTE | 2016-03-30 05:00 | NUR ---
PT RESTING QUIETLY WITHOUT DISTRESS. NO NEEDS VOICES AT THIS TIME. CALL LIGHT IN REACH. CPOC
--- NOTE | 2016-03-30 08:37 | NUR ---
Nutrition Follow Up: Chart reviewed. Pt is now NPO but was eating 73% meal avg prior to this. Noted per MD note pt has pitting edema to R great toe amputation with drainage and calf wound with drainage. I>O. +BM 03/30/16. Wt gain of 9# since admit. Labs noted - Na low; BUN, Cr, Glucose, Phos elevated. Meds noted including Vaso, Levo, Humalog. Pt with good po intake prior to diet change. Rec advancing diet when feasible. RD following.
--- NOTE | 2016-03-30 10:00 | NUR ---
REPORT RECD PT CARE ASSUMED. CONSENTS FOR SURGERY SIGNED, PT AND FAMILY UPDATED.
--- NOTE | 2016-03-30 11:20 | NUR ---
PRE-OP MEDS ADMINISTERED. PARTIAL LINEN CHANGE AND FRESH GOWN PROVIDED.
[2016-03-30 12:35] LABS: INR 1.52 (0.85-1.17); PROTIME 18.3 SECONDS (11.6-15.0)
[2016-03-30 12:36] LABS: APTT 33.2 SECONDS (22.8-39.4)
--- NOTE | 2016-03-30 13:31 | NUR ---
[id number]: ARTERIAL LINE PLACED IN LEFT FEMORAL ARTERY BY DR. VEGA. [id number]: CVL PLACED IN LEFT JUGULAR UNDER ULTRASOUND BY DR. REZA.
--- NOTE | 2016-03-30 13:56 | NUR ---
PT REMAINS IN OR AT THIS TIME.
--- NOTE | 2016-03-30 14:11 | NUR ---
PT FAMILY ESCORTED TO FAMILY ROOM TO SPEAK WITH DR. VEGA
--- NOTE | 2016-03-30 15:34 | NUR ---
PT FAMILY AT BEDSIDE CURRENTLY. BALL AND HOME HAVE BEEN CONTACTED. WILL AWAIT ARRIVAL OF HOME.
--- NOTE | 2016-03-30 15:57 | NUR ---
HOME HERE TO COLLECT BODY. ALL PAPER WORK SIGNED AND REVEIWED BY HS.
--- NOTE | 2016-03-31 09:22 | OP ---
PATIENT NAME: BERTIN BURLESON MEDICAL RECORD: [id number] :44 LOCATION:[facility] D.2308 ADMISSION DATE:03/25/16 SURGEON: JAYESH VEGA MD DATE OF OPERATION: 03/30/2016 SURGEON: Jayesh Vega MD PREOPERATIVE DIAGNOSES: 1. Cardiogenic shock. 2. End-stage renal disease, on hemodialysis. 3. Severe peripheral vascular disease with threatened right lower extremity. POSTOPERATIVE DIAGNOSES: 1. Cardiogenic shock. 2. End-stage renal disease on hemodialysis. 3. Severe peripheral vascular disease with threatened right lower extremity. 4. . ANESTHESIA: General. COMPLICATIONS: . SPECIMENS: Right lower extremity above-knee amputation. ESTIMATED BLOOD LOSS: 50 cc. Case was contaminated. OPERATIVE COURSE: After consent was obtained, prior to going to the OR, a conversation was held with the patient and his family concerning the severity of his illness. The patient had severe cardiac disease with an ejection fraction of less than 10%. He had been on dobutamine and multiple ____ the last several days for cardiogenic shock and sepsis. The patient had a gangrenous and avascular right lower extremity. The patient was taken to the operating room in an attempt to perform above-knee amputation for source control of his sepsis. In the operating room, a left femoral arterial line was placed by myself, ultrasound-guided left internal jugular vein was placed. The right lower extremity was then prepped and draped in the typical sterile fashion. A fishmouth incision was made above the right knee using a #10 blade scalpel. Dissection continued to the level of the subcutaneous tissue with electrocautery. The muscles and fascia were identified. The superficial artery and vein were identified, they were clamped and tied. The sciatic nerve was dissected, it was grabbed with hemostats, transected and tied off with 0 Vicryl suture. The popliteal artery and vein were identified and were dissected. They were double clamped with hemostats and tied off with 0 Vicryl suture and transected. Dissection then continued to the remaining muscles and fascia as well as the tendons. The periosteal elevator was used to clear the bone. The bone saw was then used to cut off at the distal femur and the specimen was passed off the field. Shortly thereafter, the patient went into cardiac arrest. He was unresponsive to therapy. An ultrasound was placed over the heart with no activity. There was no carotid activity and the A line waveform was flat. The patient did not respond to multiple boluses of epinephrine. He was on a continuous dobutamine drip and did not respond to multiple rounds of epinephrine as well as Levophed and Kris-Synephrine. At this time, it was decided not to perform CPR and was called at approximately 1351. The patient had been OPERATIVE REPORT [id number] BERTIN BURLESON made DNR prior to going to the operating room. After the patient , he was transferred back to the ICU. Dr. Freed, the patient's primary care doctor was notified. Dr. Freed and myself informed the family of the patient's . TRANSINT:[id number] Voice Confirmation ID: [id number] DOCUMENT ID: [id number] JAYESH VEGA MD at 0922 CC: [id number] DICTATION DATE: 03/30/16 142 PTA: [id number] DIS IN 03/30/16 [place] [id number] [place] [address]
--- NOTE | 2016-04-06 08:46 | EC ---
PATIENT:BERTIN BURLESON DATE OF SERVICE: 03/25/16 SEX: M MEDICAL RECORD: [id number] DATE OF : 44 LOCATION:[facility] AGE OF PATIENT: 75 ADMISSION DATE: 03/25/16 REFERRING PHYSICIAN: INTERPRETING PHYSICIAN: JULIO CÉSAR MCMULLEN MD ECHOCARDIOGRAM REPORT ECHO CHARGES 4 ECHO COMPLETE CLINICAL DIAGNOSIS: HYPOTENSION ECHOCARDIOGRAPHIC MEASUREMENTS (adult normal given) AC root (d.<3.7cm) 3.5 LV Septum d (<1.2 cm> 1.1 Valve Excursion 0.7 LV Septum (systole) 1.4 Left Atria (s.<4.0cm> 5.1 LVPW d(<1.2cm) 1.3 RV (d.<2.3cm) 3.5 LVPW (sytole) 1.6 LV diastole(<5.6CM) 6.0 MV E-F(>70mm/sec) LV systole 5.1 LVOT Diameter 2.0 MV exc.(>10mm) Est.ejection fraction (50-75%) Pericardial Effusion N DOPPLER: LVIT A E 69.0 LA RVSP 35.0 LVOT 38.0 AOP1/2T Asc. Ao 250.0 RVOT 41.0 RA PA 75.0 AV Gradient Peak 25.1 AV Mean 14.0 AV Area 0.5 MV Gradient Peak 2.9 MV Mean 0.93 MV Area COMMENTS: [place] Reo: Hank CUEVASOE Radio Dispatcher:1 Dr. Mcmullen TAPE# PACS DATE OF SERVICE: 03/26/2016 Echocardiogram FINDINGS: 1. Left ventricular chamber size is dilated. Left ventricular systolic function is markedly reduced, overall ejection fraction in 10-15%. 2. Left atrium is enlarged at 5.0 cm. Right atrium and right ventricular chamber sizes are as well mild to moderately dilated. 3. Valvular structures: Aortic valve demonstrates severe calcific aortic ECHOCARDIOGRAM REPORT [id number] BERTIN BURLESON stenosis, valve area calculates to 0.5 cm-squared and there is only a gradient of 25 mm across the valve. The low gradient secondary to low ejection fraction. 4. Doppler interrogation elsewise reveals mild mitral regurgitation, moderate tricuspid regurgitation, no other valvular insufficiency or stenosis. Pulmonary systolic pressure is estimated at 35 mmHg. 5. No evidence of pericardial effusion or left ventricular thrombus. TRANSINT:[id number] Voice Confirmation ID: [id number] DOCUMENT ID: [id number] JULIO CÉSAR MCMULLEN MD at 0846 CC: [id number] DICTATION DATE: 03/27/16 1038 MEMORIAL COUNSELOR: 03/27/16 1722 DIS IN 03/30/16 [place] [id number] [place] [id number]
--- NOTE | 2016-05-09 09:01 | DS ---
PATIENT:BERTIN BURLESON :44 MEDICAL RECORD: [id number] DISCHARGE SUMMARY ADMISSION DATE: 03/25/16 DISCHARGE DATE: 03/30/16 Mr. Burleson was admitted on March 25 for gangrene of the right foot. Surgery was consulted. Also, cardiology was consulted for echo. He had a severe cardiomyopathy with LVEF of 10% to 15%, severe calcific aortic stenosis. 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 All attempts to cross the chronic peroneal occlusion were unsuccessful. The patient had agreed to a left BKA, but unfortunately the patient cardiac arrested during surgery and did not survive. Dr. Harding was the surgeon who was consulted and was in surgery. TRANSINT:[id number] Voice Confirmation ID: [id number] DOCUMENT ID: [id number] Dictated By: FELICITAS ALDRIDGE I have interviewed/examined the above patient and agree with these documented findings. AKIRA SHEARER MD at 0901 at 0850 CC: [id number] DICTATION DATE: 05/04/16 1506 SQL DATABASE PROGRAMMER: 05/05/16 0357 DIS IN 03/30/16 [facility] [address] [place] [address]
== END 2016-03-30 16:00 | DRG 853 ==
LOC: D.ICU 16:25
PROVIDERS: Anesthesiology; Radiology Diagnostic Radiology; Surgery; ADMIT Internal Medicine Nephrology
PROC: 04CK3ZZ Extirpation of Matter from Right Femoral Artery, Percutaneous Approach (ICD-10-PCS; 2016-03-27)
PROC: 04CM3ZZ Extirpation of Matter from Right Popliteal Artery, Percutaneous Approach (ICD-10-PCS; 2016-03-27)
PROC: 047K3Z1 Dilation of Right Femoral Artery using Drug-Coated Balloon, Percutaneous Approach (ICD-10-PCS; 2016-03-27)
PROC: 047M3Z1 Dilation of Right Popliteal Artery using Drug-Coated Balloon, Percutaneous Approach (ICD-10-PCS; 2016-03-27)
PROC: 5A1D60Z (ICD-10-PCS; principal; 2016-03-27 10:00)
PROC: 0Y6C0Z3 Detachment at Right Upper Leg, Low, Open Approach (ICD-10-PCS; 2016-03-30)
PROC: 05HN33Z Insertion of Infusion Device into Left Internal Jugular Vein, Percutaneous Approach (ICD-10-PCS; 2016-03-30)
PROC: B544ZZA Ultrasonography of Left Jugular Veins, Guidance (ICD-10-PCS; 2016-03-30)
DX: A41.9 Sepsis, unspecified organism (principal); I50.23 Acute on chronic systolic (congestive) heart failure; N18.6 End stage renal disease; J15.9 Unspecified bacterial pneumonia; L03.115 Cellulitis of right lower limb; E11.52 Type 2 diabetes mellitus with diabetic peripheral angiopathy with gangrene; I13.2 Hypertensive heart and chronic kidney disease with heart failure and with stage 5 chronic kidney disease, or end stage renal disease; I42.9 Cardiomyopathy, unspecified; E44.0 Moderate protein-calorie malnutrition; E11.628 Type 2 diabetes mellitus with other skin complications; E11.649 Type 2 diabetes mellitus with hypoglycemia without coma; E11.22 Type 2 diabetes mellitus with diabetic chronic kidney disease; Z99.2 Dependence on renal dialysis; D69.6 Thrombocytopenia, unspecified; Z66 Do not resuscitate; I87.2 Venous insufficiency (chronic) (peripheral); I35.0 Nonrheumatic aortic (valve) stenosis; D63.1 Anemia in chronic kidney disease; I25.10 Atherosclerotic heart disease of native coronary artery without angina pectoris; Z79.01 Long term (current) use of anticoagulants; E83.39 Other disorders of phosphorus metabolism; J44.9 Chronic obstructive pulmonary disease, unspecified; R57.0 Cardiogenic shock; Z68.25 Body mass index [BMI] 25.0-25.9, adult; Z89.411 Acquired absence of right great toe; Z95.810 Presence of automatic (implantable) cardiac defibrillator; Z86.73 Personal history of transient ischemic attack (TIA), and cerebral infarction without residual deficits; Z87.891 Personal history of nicotine dependence